=== PATIENT | male | born 1955 | race African-American/Black ===

== ENCOUNTER 2017-01-29 10:48 | Inpatient (IN) ==
[2017-01-29 11:28] LABS: MANUAL DIFF NEEDED? NO
[2017-01-29 11:31] LABS: BASO% 0.2 % (0.0-0.8); EOS# 0.05 X1000 (0.0-0.7); EOS% 0.4 % (0.0-10.0); HEMATOCRIT 39.8 % (42.0-52.0); HEMOGLOBIN 12.4 g/dL (14.0-18.0); IMM GRAN# 0.03 X1000 (0.0-0.04); IMM GRAN% 0.2 % (0.0-0.5); LYMPH# 1.45 X1000 (1.2-3.4); LYMPH% 11.5 % (20.5-51.1); MCH 27.2 PG (27-31); MCHC 31.2 g/dL (33-37); MCV 87.3 FL (81-99); MONO# 0.85 X1000 (0.11-0.59); MONO% 6.8 % (1.7-9.3); NEUT% 80.9 % (42.2-75.2); PLT 256 X1000 (130-400); RBC 4.56 XMIL (4.7-6.1)
[2017-01-29] MEDS ORDERED: NS 1,000 ML IV ONE ×2 (11:32)
--- NOTE | 2017-01-29 11:37 | PROVIDER DOCUMENTATION ---
HPI-General Adult - General Chief Complaint: Weakness Stated Complaint: WEAKNESS Time Seen by Provider: 01/29/17 11:11 Source: patient Allergies/Adverse Reactions: Patient Allergies Allergy/AdvReac Type Severity Reaction Status Date / Time No Known Allergies Allergy Verified 01/13/16 08:44 Home Medications: Home Medication List Medication Instructions Recorded Confirmed Last Taken Type ATORVAstatin [Lipitor] 40 mg PO QHS 01/13/16 01/29/17 04/16/16 20:00 History Aspirin 81 mg PO DAILY 01/13/16 01/29/17 04/09/16 07:30 History Clopidogrel Bisulfate [Plavix] 75 mg PO DAILY 01/13/16 01/29/17 04/06/16 07:30 History LISINOpril [Prinivil] 40 mg PO DAILY 01/13/16 01/29/17 04/15/16 20:00 History Metoprolol Tartrate 50 mg PO BID 01/13/16 01/29/17 04/17/16 04:30 History Amlodipine [Norvasc] 5 mg PO DAILY 01/29/17 01/29/17 Unknown History Colchicine [Colcrys] 1 tab PO DAILY 01/29/17 01/29/17 Unknown History Hydrocodone/APAP 7.5 mg/325 mg 1 each PO BID PRN 01/29/17 01/29/17 Unknown History [[place]-7.5] Ipratropium/Albuterol Sulfate 1 inhaler PO DAILY 01/29/17 01/29/17 Unknown History [Iprat-Albut 0.5-3(2.5) mg/3 ml] Umeclidinium/Vilanterol [Anoro 1 puff INH RTDAILY 01/29/17 01/29/17 Unknown History Ellipta 62.5-25 Mcg INH] - History of Present Illness -Gen Adult Nature of Presenting Problems: 61 y/o BM presents to the ED with unknown complaint. Pt oriented to time, but is not answering most questions appropriately. Pt uttering non-sensical words in the room. Review of Systems - Adult - REVIEW OF SYSTEMS - ADULT ROS:: limited per condition Constitutional: reports: no symptoms reported Eyes: reports: no symptoms reported Ears, Nose, Mouth & Throat: reports: no symptoms reported Cardiovascular: reports: no symptoms reported Respiratory: reports: no symptoms reported Gastrointestinal: reports: no symptoms reported Genitourinary: reports: no symptoms reported Musculoskeletal: reports: no symptoms reported Integumentary: reports: no symptoms reported Neurological: reports: no symptoms reported Psychiatric: reports: no symptoms reported Endocrine: reports: no symptoms reported Hematologic/Lymphatic: reports: no symptoms reported Allergic/Immunologic: reports: no symptoms reported All Other Systems: Reviewed and Negative Past History - Adult - PAST MEDICAL HISTORY-ADULT Review of Records: reports: Nursing Assessment Review, Medications Reviewed - SOCIAL HISTORY Smoking: cigarettes, less than 1 pack/day Physical Exam-General - PHYSICAL EXAM-ADULT Initial Vital Signs Reviewed: Yes - CONSTITUTIONAL General Appearance: slow to respond - EYES Eyes: pink conjunctivae - HEAD, EARS, NOSE, MOUTH & THROAT HENMT: normocephalic/atraumatic - NECK Neck: normal inspection - RESPIRATORY Respiratory: no respiratory distress, decreased breath sounds. negative: crackles, rales, rhonchi, stridor, wheezing - CARDIOVASCULAR Cardiovascular: regular rate, rhythm. negative: bradycardia, tachycardia - GASTROINTESTINAL (ABDOMEN) Abdominal Exam: normal bowel sounds, non tender, soft. negative: distended, guarding, rigid - MUSCULOSKELETAL Back Exam: normal inspection Extremity: normal inspection - SKIN Integumentary: normal color - PSYCHIATRIC Psych/Mental Status: disheveled. negative: oriented x 3 (A&O x2) Progress - PLAN OF CARE/RESULTS Progress/Plan/Lab Results: Vital Signs - 8 hr 01/29/17 11:04 Temperature 97.3 F L Pulse Rate 71 Respiratory Rate 18 Blood Pressure 142/61 O2 Sat by Pulse Oximetry 96 Laboratory Results - last 24 hr 01/29/17 11:15 WBC 12.58 H RBC 4.56 L Hgb 12.4 L Hct 39.8 L MCV 87.3 MCH 27.2 MCHC 31.2 L RDW Std Deviation 19.0 H Plt Count 256 MPV 12.0 H Immature Gran % (Auto) 0.2 Neut % (Auto) 80.9 H Lymph % (Auto) 11.5 L [place] % (Auto) 6.8 Eos % (Auto) 0.4 Baso % (Auto) 0.2 Immature Gran # (Auto) 0.03 Neut # (Auto) 10.18 H Lymph # (Auto) 1.45 [place] # (Auto) 0.85 H Eos # (Auto) 0.05 Baso # (Auto) 0.02 Orders Category Date Time Status Cardiac Monitoring DIRECTED Care 01/29/17 11:10 Active Finger Stick Blood Sugar (ED) DIRECTED Care 01/29/17 11:10 Active Oxygen Therapy- ED Nursing DIRECTED Care 01/29/17 11:10 Active Saline Loc NOW Care 01/29/17 11:10 Active ALCOHOL BLOOD Stat Lab 01/29/17 11:15 Received CBC WITH ELECTRONIC DIFF [HEME] Stat Lab 01/29/17 11:15 Completed CK PROFILE [SP CHEM] Stat Lab 01/29/17 11:15 Received COMPREHENSIVE METABOLIC PANEL [CHEM] Stat Lab 01/29/17 11:15 Received LACTATE, PLASMA [CHEM] Stat Lab 01/29/17 11:[address]IME WITH INR PL [COAG] Stat Lab 01/29/17 11:[address] [COAG] Stat Lab 01/29/17 11:15 Received TROPONIN T Stat Lab 01/29/17 11:[address] W/POSS RFLX CULT [URINALYSIS] Stat Lab 01/29/17 11:14 Ordered URINE DRUG SCREEN PL Stat Lab 01/29/17 11:14 Ordered Pulse Oximetry Stat Oth 01/29/17 11:10 Active EKG [EKG] Stat Ther 01/29/17 11:10 Ordered Laboratory Tests 01/29/17 01/29/17 01/29/17 11:02 11:15 11:15 WBC RBC Hgb Hct MCV MCH MCHC RDW Std Deviation Plt Count MPV Immature Gran % (Auto) Neut % (Auto) Lymph % (Auto) [place] % (Auto) Eos % (Auto) Baso % (Auto) Immature Gran # (Auto) Neut # (Auto) Lymph # (Auto) [place] # (Auto) Eos # (Auto) Baso # (Auto) PT INR APTT (Factor Assay) Specimen Type Sample Site pH pCO2 pO2 HCO3 Base Excess Oxyhemoglobin ABG O2 Sat (Calculated) ABG O2 Saturation ABG Carboxyhemoglobin ABG Methemoglobin Toribio Test A-a O2 Difference Total Hemoglobin Lactate Blood Gas Modality FiO2 % Sodium 139 Potassium 6.2 H* Chloride 111 H Carbon Dioxide 12 L Anion Gap 17 BUN 130 H Creatinine 2.7 H Estimated GFR/1.73 m2 24 BUN/Creatinine Ratio 48 Glucose 124 H POC Glucose 55 L D Calculated Osmolality 321 Calcium 10.0 Magnesium Total Bilirubin 0.20 AST 21 ALT 15 Alkaline Phosphatase 88 Creatine Kinase 126 Troponin T 0.180 H Total Protein 8.8 H Albumin 3.8 Globulin 5.0 Albumin/Globulin Ratio 1.0 Prealbumin Plasma Lactate PSA Diagnostic TSH Urine Source Urine Color Urine Clarity Urine pH Ur Specific [place] Urine Protein Urine Ketones Urine Blood Urine Nitrite Urine Bilirubin Urine Urobilinogen Urine Microscopic RBC Urine WBC Urine Microscopic WBC Ur Epithelial Cells Urine Bacteria Ur Random Creatinine Ur Random Sodium Urine Glucose Urine Opiates Screen Ur Oxycodone Screen Urine Methadone Screen Ur Barbituates Screen Ur Tricyclics Screen Ur Phencyclidine Scrn Ur Amphetamines Screen U Methamphetamines Scrn Urine MDMA Screen U Benzodiazepines Scrn Urine Cocaine Screen U Cannabinoids Screen Plasma/Serum Ethyl Alc 01/29/17 01/29/17 01/29/17 11:15 11:15 11:15 WBC 12.58 H RBC 4.56 L Hgb 12.4 L Hct 39.8 L MCV 87.3 MCH 27.2 MCHC 31.2 L RDW Std Deviation 19.0 H Plt Count 256 MPV 12.0 H Immature Gran % (Auto) 0.2 Neut % (Auto) 80.9 H Lymph % (Auto) 11.5 L [place] % (Auto) 6.8 Eos % (Auto) 0.4 Baso % (Auto) 0.2 Immature Gran # (Auto) 0.03 Neut # (Auto) 10.18 H Lymph # (Auto) 1.45 [place] # (Auto) 0.85 H Eos # (Auto) 0.05 Baso # (Auto) 0.02 PT 14.2 INR 1.07 APTT (Factor Assay) 25.5 Specimen Type Sample Site pH pCO2 pO2 HCO3 Base Excess Oxyhemoglobin ABG O2 Sat (Calculated) ABG O2 Saturation ABG Carboxyhemoglobin ABG Methemoglobin Toribio Test A-a O2 Difference Total Hemoglobin Lactate Blood Gas Modality FiO2 % Sodium Potassium Chloride Carbon Dioxide Anion Gap BUN Creatinine Estimated GFR/1.73 m2 BUN/Creatinine Ratio Glucose POC Glucose Calculated Osmolality Calcium Magnesium Total Bilirubin AST ALT Alkaline Phosphatase Creatine Kinase Troponin T Total Protein Albumin Globulin Albumin/Globulin Ratio Prealbumin Plasma Lactate PSA Diagnostic TSH Urine Source Urine Color Urine Clarity Urine pH Ur Specific [place] Urine Protein Urine Ketones Urine Blood Urine Nitrite Urine Bilirubin Urine Urobilinogen Urine Microscopic RBC Urine WBC Urine Microscopic WBC Ur Epithelial Cells Urine Bacteria Ur Random Creatinine Ur Random Sodium Urine Glucose Urine Opiates Screen Ur Oxycodone Screen Urine Methadone Screen Ur Barbituates Screen Ur Tricyclics Screen Ur Phencyclidine Scrn Ur Amphetamines Screen U Methamphetamines Scrn Urine MDMA Screen U Benzodiazepines Scrn Urine Cocaine Screen U Cannabinoids Screen Plasma/Serum Ethyl Alc 0 01/29/17 01/29/17 01/29/17 11:35 13:24 13:30 WBC RBC Hgb Hct MCV MCH MCHC RDW Std Deviation Plt Count MPV Immature Gran % (Auto) Neut % (Auto) Lymph % (Auto) [place] % (Auto) Eos % (Auto) Baso % (Auto) Immature Gran # (Auto) Neut # (Auto) Lymph # (Auto) [place] # (Auto) Eos # (Auto) Baso # (Auto) PT INR APTT (Factor Assay) Specimen Type Sample Site pH pCO2 pO2 HCO3 Base Excess Oxyhemoglobin ABG O2 Sat (Calculated) ABG O2 Saturation ABG Carboxyhemoglobin ABG Methemoglobin Toribio Test A-a O2 Difference Total Hemoglobin Lactate Blood Gas Modality FiO2 % Sodium Potassium Chloride Carbon Dioxide Anion Gap BUN Creatinine Estimated GFR/1.73 m2 BUN/Creatinine Ratio Glucose POC Glucose Calculated Osmolality Calcium Magnesium Total Bilirubin AST ALT Alkaline Phosphatase Creatine Kinase Troponin T Total Protein Albumin Globulin Albumin/Globulin Ratio Prealbumin Plasma Lactate 1.2 PSA Diagnostic 0.01 TSH Urine Source VOIDED Urine Color YELLOW Urine Clarity CLEAR Urine pH 6.0 Ur Specific [place] 1.015 Urine Protein 1+(30 mg/dL) A Urine Ketones NEGATIVE Urine Blood 2+ A Urine Nitrite POSITIVE A Urine Bilirubin NEGATIVE Urine Urobilinogen NORMAL Urine Microscopic RBC Not Reportable Urine WBC 2+ A Urine Microscopic WBC 20-40 A Ur Epithelial Cells <10 Urine Bacteria 4+ Ur Random Creatinine Ur Random Sodium Urine Glucose NEGATIVE Urine Opiates Screen Ur Oxycodone Screen Urine Methadone Screen Ur Barbituates Screen Ur Tricyclics Screen Ur Phencyclidine Scrn Ur Amphetamines Screen U Methamphetamines Scrn Urine MDMA Screen U Benzodiazepines Scrn Urine Cocaine Screen U Cannabinoids Screen Plasma/Serum Ethyl Alc 01/29/17 01/29/17 01/29/17 13:30 14:29 15:40 WBC RBC Hgb Hct MCV MCH MCHC RDW Std Deviation Plt Count MPV Immature Gran % (Auto) Neut % (Auto) Lymph % (Auto) [place] % (Auto) Eos % (Auto) Baso % (Auto) Immature Gran # (Auto) Neut # (Auto) Lymph # (Auto) [place] # (Auto) Eos # (Auto) Baso # (Auto) PT INR APTT (Factor Assay) Specimen Type Sample Site pH pCO2 pO2 HCO3 Base Excess Oxyhemoglobin ABG O2 Sat (Calculated) ABG O2 Saturation ABG Carboxyhemoglobin ABG Methemoglobin Toribio Test A-a O2 Difference Total Hemoglobin Lactate Blood Gas Modality FiO2 % Sodium 139 Potassium 6.1 H* Chloride 112 H Carbon Dioxide 13 L Anion Gap 14 BUN 128 H Creatinine 2.2 H Estimated GFR/1.73 m2 30 BUN/Creatinine Ratio 58 Glucose 112 H POC Glucose 87 D Calculated Osmolality 319 Calcium 9.9 Magnesium Total Bilirubin 0.20 AST 20 ALT 16 Alkaline Phosphatase 85 Creatine Kinase Troponin T Total Protein 8.6 H Albumin 3.9 Globulin 5.0 Albumin/Globulin Ratio 1.0 Prealbumin Plasma Lactate PSA Diagnostic TSH Urine Source Urine Color Urine Clarity Urine pH Ur Specific [place] Urine Protein Urine Ketones Urine Blood Urine Nitrite Urine Bilirubin Urine Urobilinogen Urine Microscopic RBC Urine WBC Urine Microscopic WBC Ur Epithelial Cells Urine Bacteria Ur Random Creatinine Ur Random Sodium Urine Glucose Urine Opiates Screen NONE DETECTED Ur Oxycodone Screen NONE DETECTED Urine Methadone Screen NONE DETECTED Ur Barbituates Screen NONE DETECTED Ur Tricyclics Screen NONE DETECTED Ur Phencyclidine Scrn NONE DETECTED Ur Amphetamines Screen NONE DETECTED U Methamphetamines Scrn NONE DETECTED Urine MDMA Screen NONE DETECTED U Benzodiazepines Scrn NONE DETECTED Urine Cocaine Screen NONE DETECTED U Cannabinoids Screen NONE DETECTED Plasma/Serum Ethyl Alc 01/29/17 01/29/17 01/29/17 15:40 15:40 16:28 WBC 10.51 RBC 4.44 L Hgb 12.2 L Hct 38.7 L MCV 87.2 MCH 27.5 MCHC 31.5 L RDW Std Deviation 18.7 H Plt Count 205 MPV 10.6 H Immature Gran % (Auto) Neut % (Auto) Lymph % (Auto) [place] % (Auto) Eos % (Auto) Baso % (Auto) Immature Gran # (Auto) Neut # (Auto) Lymph # (Auto) [place] # (Auto) Eos # (Auto) Baso # (Auto) PT INR APTT (Factor Assay) Specimen Type Sample Site pH pCO2 pO2 HCO3 Base Excess Oxyhemoglobin ABG O2 Sat (Calculated) ABG O2 Saturation ABG Carboxyhemoglobin ABG Methemoglobin Toribio Test A-a O2 Difference Total Hemoglobin Lactate Blood Gas Modality FiO2 % Sodium Potassium Chloride Carbon Dioxide Anion Gap BUN Creatinine Estimated GFR/1.73 m2 BUN/Creatinine Ratio Glucose POC Glucose 55 L Calculated Osmolality Calcium Magnesium Total Bilirubin AST ALT Alkaline Phosphatase Creatine Kinase Troponin T 0.170 H Total Protein Albumin Globulin Albumin/Globulin Ratio Prealbumin Plasma Lactate PSA Diagnostic TSH Urine Source Urine Color Urine Clarity Urine pH Ur Specific [place] Urine Protein Urine Ketones Urine Blood Urine Nitrite Urine Bilirubin Urine Urobilinogen Urine Microscopic RBC Urine WBC Urine Microscopic WBC Ur Epithelial Cells Urine Bacteria Ur Random Creatinine Ur Random Sodium Urine Glucose Urine Opiates Screen Ur Oxycodone Screen Urine Methadone Screen Ur Barbituates Screen Ur Tricyclics Screen Ur Phencyclidine Scrn Ur Amphetamines Screen U Methamphetamines Scrn Urine MDMA Screen U Benzodiazepines Scrn Urine Cocaine Screen U Cannabinoids Screen Plasma/Serum Ethyl Alc 01/29/17 01/29/17 01/29/17 18:00 21:55 23:50 WBC RBC Hgb Hct MCV MCH MCHC RDW Std Deviation Plt Count MPV Immature Gran % (Auto) Neut % (Auto) Lymph % (Auto) [place] % (Auto) Eos % (Auto) Baso % (Auto) Immature Gran # (Auto) Neut # (Auto) Lymph # (Auto) [place] # (Auto) Eos # (Auto) Baso # (Auto) PT INR APTT (Factor Assay) Specimen Type ARTERIAL Sample Site L RADIAL pH 7.23 L pCO2 31 L pO2 194 H HCO3 14.5 L Base Excess -13.3 L Oxyhemoglobin 95.8 ABG O2 Sat (Calculated) 17.0 ABG O2 Saturation 99.3 ABG Carboxyhemoglobin 1.50 ABG Methemoglobin 2.0 H Toribio Test YES A-a O2 Difference 52.0 Total Hemoglobin 12.3 Lactate 0.40 L Blood Gas Modality [place] FiO2 % 40.0 Sodium 145 Potassium 5.6 H Chloride 115 H Carbon Dioxide 14 L Anion Gap 16 BUN 122 H Creatinine 1.7 H Estimated GFR/1.73 m2 41 BUN/Creatinine Ratio 69 Glucose 124 H POC Glucose 136 H D Calculated Osmolality 327 Calcium 9.9 Magnesium Total Bilirubin AST ALT Alkaline Phosphatase Creatine Kinase Troponin T Total Protein Albumin Globulin Albumin/Globulin Ratio Prealbumin Plasma Lactate PSA Diagnostic TSH Urine Source Urine Color Urine Clarity Urine pH Ur Specific [place] Urine Protein Urine Ketones Urine Blood Urine Nitrite Urine Bilirubin Urine Urobilinogen Urine Microscopic RBC Urine WBC Urine Microscopic WBC Ur Epithelial Cells Urine Bacteria Ur Random Creatinine Ur Random Sodium Urine Glucose Urine Opiates Screen Ur Oxycodone Screen Urine Methadone Screen Ur Barbituates Screen Ur Tricyclics Screen Ur Phencyclidine Scrn Ur Amphetamines Screen U Methamphetamines Scrn Urine MDMA Screen U Benzodiazepines Scrn Urine Cocaine Screen U Cannabinoids Screen Plasma/Serum Ethyl Alc 01/30/17 01/30/17 01/30/17 00:12 01:00 01:00 WBC RBC Hgb Hct MCV MCH MCHC RDW Std Deviation Plt Count MPV Immature Gran % (Auto) Neut % (Auto) Lymph % (Auto) [place] % (Auto) Eos % (Auto) Baso % (Auto) Immature Gran # (Auto) Neut # (Auto) Lymph # (Auto) [place] # (Auto) Eos # (Auto) Baso # (Auto) PT INR APTT (Factor Assay) Specimen Type Sample Site pH pCO2 pO2 HCO3 Base Excess Oxyhemoglobin ABG O2 Sat (Calculated) ABG O2 Saturation ABG Carboxyhemoglobin ABG Methemoglobin Toribio Test A-a O2 Difference Total Hemoglobin Lactate Blood Gas Modality FiO2 % Sodium Potassium Chloride Carbon Dioxide Anion Gap BUN Creatinine Estimated GFR/1.73 m2 BUN/Creatinine Ratio Glucose POC Glucose 75 Calculated Osmolality Calcium Magnesium Total Bilirubin AST ALT Alkaline Phosphatase Creatine Kinase Troponin T Total Protein Albumin Globulin Albumin/Globulin Ratio Prealbumin Plasma Lactate PSA Diagnostic TSH Urine Source CATH Urine Color YELLOW Urine Clarity CLEAR Urine pH 5.0 Ur Specific [place] 1.015 Urine Protein TRACE A Urine Ketones NEGATIVE Urine Blood 2+ A Urine Nitrite NEGATIVE Urine Bilirubin NEGATIVE Urine Urobilinogen NORMAL Urine Microscopic RBC 10-20 A Urine WBC 2+ A Urine Microscopic WBC 10-20 A Ur Epithelial Cells <10 Urine Bacteria 2+ Ur Random Creatinine 48.6 H Ur Random Sodium 41 Urine Glucose NEGATIVE Urine Opiates Screen Ur Oxycodone Screen Urine Methadone Screen Ur Barbituates Screen Ur Tricyclics Screen Ur Phencyclidine Scrn Ur Amphetamines Screen U Methamphetamines Scrn Urine MDMA Screen U Benzodiazepines Scrn Urine Cocaine Screen U Cannabinoids Screen Plasma/Serum Ethyl Alc 01/30/17 01/30/17 01/30/17 04:30 04:30 04:30 WBC 10.64 RBC 4.21 L Hgb 11.5 L Hct 36.8 L MCV 87.4 MCH 27.3 MCHC 31.3 L RDW Std Deviation 18.7 H Plt Count 205 MPV 11.3 H Immature Gran % (Auto) Neut % (Auto) Lymph % (Auto) [place] % (Auto) Eos % (Auto) Baso % (Auto) Immature Gran # (Auto) Neut # (Auto) Lymph # (Auto) [place] # (Auto) Eos # (Auto) Baso # (Auto) PT INR APTT (Factor Assay) Specimen Type Sample Site pH pCO2 pO2 HCO3 Base Excess Oxyhemoglobin ABG O2 Sat (Calculated) ABG O2 Saturation ABG Carboxyhemoglobin ABG Methemoglobin Toribio Test A-a O2 Difference Total Hemoglobin Lactate Blood Gas Modality FiO2 % Sodium 148 H Potassium 5.8 H Chloride 119 H Carbon Dioxide 14 L Anion Gap 15 BUN 105 H Creatinine 1.7 H Estimated GFR/1.73 m2 41 BUN/Creatinine Ratio 62 Glucose 145 H POC Glucose Calculated Osmolality 330 Calcium 9.9 Magnesium 2.8 H Total Bilirubin 0.20 AST 19 ALT 16 Alkaline Phosphatase 80 Creatine Kinase Troponin T Total Protein 8.2 Albumin 3.8 Globulin 4.0 Albumin/Globulin Ratio 1.0 Prealbumin Plasma Lactate PSA Diagnostic TSH 1.04 Urine Source Urine Color Urine Clarity Urine pH Ur Specific [place] Urine Protein Urine Ketones Urine Blood Urine Nitrite Urine Bilirubin Urine Urobilinogen Urine Microscopic RBC Urine WBC Urine Microscopic WBC Ur Epithelial Cells Urine Bacteria Ur Random Creatinine Ur Random Sodium Urine Glucose Urine Opiates Screen Ur Oxycodone Screen Urine Methadone Screen Ur Barbituates Screen Ur Tricyclics Screen Ur Phencyclidine Scrn Ur Amphetamines Screen U Methamphetamines Scrn Urine MDMA Screen U Benzodiazepines Scrn Urine Cocaine Screen U Cannabinoids Screen Plasma/Serum Ethyl Alc 01/30/17 01/30/17 01/30/17 04:30 04:30 04:30 WBC RBC Hgb Hct MCV MCH MCHC RDW Std Deviation Plt Count MPV Immature Gran % (Auto) Neut % (Auto) Lymph % (Auto) [place] % (Auto) Eos % (Auto) Baso % (Auto) Immature Gran # (Auto) Neut # (Auto) Lymph # (Auto) [place] # (Auto) Eos # (Auto) Baso # (Auto) PT INR APTT (Factor Assay) Specimen Type Sample Site pH pCO2 pO2 HCO3 Base Excess Oxyhemoglobin ABG O2 Sat (Calculated) ABG O2 Saturation ABG Carboxyhemoglobin ABG Methemoglobin Toribio Test A-a O2 Difference Total Hemoglobin Lactate Blood Gas Modality FiO2 % Sodium Potassium Chloride Carbon Dioxide Anion Gap BUN Creatinine Estimated GFR/1.73 m2 BUN/Creatinine Ratio Glucose POC Glucose Calculated Osmolality Calcium Magnesium Total Bilirubin AST ALT Alkaline Phosphatase Creatine Kinase 124 Troponin T 0.089 Total Protein Albumin Globulin Albumin/Globulin Ratio Prealbumin Plasma Lactate 1.2 PSA Diagnostic TSH Urine Source Urine Color Urine Clarity Urine pH Ur Specific [place] Urine Protein Urine Ketones Urine Blood Urine Nitrite Urine Bilirubin Urine Urobilinogen Urine Microscopic RBC Urine WBC Urine Microscopic WBC Ur Epithelial Cells Urine Bacteria Ur Random Creatinine Ur Random Sodium Urine Glucose Urine Opiates Screen Ur Oxycodone Screen Urine Methadone Screen Ur Barbituates Screen Ur Tricyclics Screen Ur Phencyclidine Scrn Ur Amphetamines Screen U Methamphetamines Scrn Urine MDMA Screen U Benzodiazepines Scrn Urine Cocaine Screen U Cannabinoids Screen Plasma/Serum Ethyl Alc 01/30/17 01/30/17 12:50 12:50 WBC RBC Hgb Hct MCV MCH MCHC RDW Std Deviation Plt Count MPV Immature Gran % (Auto) Neut % (Auto) Lymph % (Auto) [place] % (Auto) Eos % (Auto) Baso % (Auto) Immature Gran # (Auto) Neut # (Auto) Lymph # (Auto) [place] # (Auto) Eos # (Auto) Baso # (Auto) PT INR APTT (Factor Assay) Specimen Type Sample Site pH pCO2 pO2 HCO3 Base Excess Oxyhemoglobin ABG O2 Sat (Calculated) ABG O2 Saturation ABG Carboxyhemoglobin ABG Methemoglobin Toribio Test A-a O2 Difference Total Hemoglobin Lactate Blood Gas Modality FiO2 % Sodium 147 H Potassium 5.9 H Chloride 119 H Carbon Dioxide 14 L Anion Gap 14 BUN 88 H Creatinine 1.5 H Estimated GFR/1.73 m2 47 BUN/Creatinine Ratio 59 Glucose 161 H POC Glucose Calculated Osmolality 323 Calcium 9.4 Magnesium Total Bilirubin AST ALT Alkaline Phosphatase Creatine Kinase Troponin T Total Protein Albumin Globulin Albumin/Globulin Ratio Prealbumin 19.1 L Plasma Lactate PSA Diagnostic TSH Urine Source Urine Color Urine Clarity Urine pH Ur Specific [place] Urine Protein Urine Ketones Urine Blood Urine Nitrite Urine Bilirubin Urine Urobilinogen Urine Microscopic RBC Urine WBC Urine Microscopic WBC Ur Epithelial Cells Urine Bacteria Ur Random Creatinine Ur Random Sodium Urine Glucose Urine Opiates Screen Ur Oxycodone Screen Urine Methadone Screen Ur Barbituates Screen Ur Tricyclics Screen Ur Phencyclidine Scrn Ur Amphetamines Screen U Methamphetamines Scrn Urine MDMA Screen U Benzodiazepines Scrn Urine Cocaine Screen U Cannabinoids Screen Plasma/Serum Ethyl Alc Result Diagrams: 01/30/17 04:30 01/30/17 12:50 Departure - Departure Time of Disposition Decision: 13:30 DIAGNOSIS: Hyperkalemia, Prerenal renal failure Disposition: ADMITTED INPATIENT 09 Certified Medical Emergency: Emergent Condition: Stable Attestation - Physician/ YE Attestation Patient care was provided by Advanced Practice Provider:: Yes Advanced Practice Provider:: Alejandra Meier Advanced Practice Provider documentation review:: The Mid-level provider documentation, treatment plan and medical decision making was reviewed by the physician who agrees with all treatment and medical decision making by the MLP.
[2017-01-29 11:47] LABS: INR 1.07 (0.86-1.15); PROTIME 14.2 Seconds (12.1-15.5); PTT PL 25.5 Seconds (22.6-43.9)
--- NOTE | 2017-01-29 11:52 | ED EKG INTERP ---
This chart was entered by Irma Barbosa Scribe, acting as scribe for Aaron Scott MD. EKG Interpretation - EKG Time of EKG reading by physician:: 11:19 EKG Read and Signed by:: Aaron Scott EKG Interpretation (*Must complete 3 of following elements*): Abnormal ( inferior infarct, age undetermined) Rate: 59 Rhythm: sinus bradycardia with short MT Comments: left ventricular hypertrophy with QRS widening This chart was documented by the indicated scribe, (Irma Barbosa Scribe) and accurately reflects the services I performed and decisions made by me, Aaron Scott MD, as attested by the provider's signature.
--- NOTE | 2017-01-29 12:28 | Diag Imaging Result Document ---
PROCEDURE NAME: HEAD W/O CONTRAST - 01/29/2017 CT BRAIN WITHOUT CONTRAST: FINDINGS: No parenchymal hemorrhage. No epidural or subdural hematoma. No subarachnoid hemorrhage. Mild atrophy. No mass identified on this noncontrasted exam. No hydrocephalus. No sinus opacification although there is mucosal thickening in each maxillary sinus. IMPRESSION: 1. No hemorrhage. Mild atrophy. 2. Mild maxillary sinusitis. A preliminary report was given at 12:03 p.m.
[2017-01-29 12:59] LABS: ALBUMIN 3.8 g/dL (3.5-5.0); POTASSIUM 6.2 mmol/L (3.5-5.1); TOTAL BILIRUBIN 0.2 mg/dL (0.20-1.00); TOTAL PROTEIN 8.8 g/dL (6.3-8.3)
--- NOTE | 2017-01-29 13:36 | Diag Imaging Result Document ---
PROCEDURE NAME: CHEST-2 VIEWS - 01/29/2017 FRONTAL AND LATERAL CHEST, TWO VIEWS: FINDINGS: Sternal wires and surgical clips are present. The lungs are well expanded. The heart is not enlarged. The vessels are not distended. No pneumonia. No pleural effusions. Mild increased AP diameter to the chest. IMPRESSION: I believe the patient has emphysema.
[2017-01-29] MEDS ORDERED: ZOFRAN IV PRN (13:57)
[2017-01-29 13:59] LABS: UR AMPHETAMINES QUAL NONE DETECTED (NONE DETECT); UR BARBITUATES QUAL NONE DETECTED (NONE DETECT); UR BENZODIAZEPIN QUAL NONE DETECTED (NONE DETECT); UR CANNABINOIDS QUAL NONE DETECTED (NONE DETECT); UR COCAINE QUAL NONE DETECTED (NONE DETECT); UR MDMA QUAL NONE DETECTED (NONE DETECT); UR METHADONE QUAL NONE DETECTED (NONE DETECT); UR METHAMPHETAMINE QUAL NONE DETECTED (NONE DETECT); UR OPIATES QUAL NONE DETECTED (NONE DETECT); UR OXYCODONE QUAL NONE DETECTED (NONE DETECT); UR PCP QUAL NONE DETECTED (NONE DETECT); UR TCA QUAL NONE DETECTED (NONE DETECT)
[2017-01-29 14:10] LABS: BILIRUBIN URINE NEGATIVE (NEGATIVE); BLOOD URINE 2+ (NEGATIVE); CLARITY CLEAR (CLEAR); COLOR YELLOW; GLUCOSE URINE NEGATIVE (NEGATIVE); LEUKOCYTES URINE 2+ (NEGATIVE); NITRITE URINE POSITIVE (NEGATIVE); PROTEIN URINE 1+(30 mg/dL) mg/dL (NEGATIVE); SP GRAVITY URINE 1.015; UROBILINOGEN URINE NORMAL
[2017-01-29 14:11] LABS: URINE WBC 20-40 /HPF (<10)
[2017-01-29 14:12] LABS: URINE CULTURE PL NEEDED? YES; URINE EPITHELIAL CELLS <10 /HPF (<10); URINE SOURCE VOIDED
--- NOTE | 2017-01-29 15:00 | Diag Imaging Result Document ---
PROCEDURE NAME: US RENAL 2 (RETROPER) COMPLETE - 01/29/2017 RENAL ULTRASOUND: INDICATION: Kidney failure. FINDINGS: The kidneys appear normal in size and echotexture. There is no hydronephrosis. There is a 5.9 cm simple renal cyst, right upper pole. There is an additional 7 mm cyst within the right midpole. There is no hydronephrosis or nephrolithiasis. Left kidney is unremarkable. The bladder is not distended. IMPRESSION: Right renal cyst. No hydronephrosis.
[2017-01-29 15:50] LABS: HEMATOCRIT 38.7 % (42.0-52.0); HEMOGLOBIN 12.2 g/dL (14.0-18.0); MCH 27.5 PG (27-31); MCHC 31.5 g/dL (33-37); MCV 87.2 FL (81-99); MPV 10.6 FL (7.4-10.4); RBC 4.44 XMIL (4.7-6.1)
[2017-01-29 16:20] LABS: ALBUMIN 3.9 g/dL (3.5-5.0); CALCIUM 9.9 mg/dL (8.8-10.2); TOTAL BILIRUBIN 0.2 mg/dL (0.20-1.00); TOTAL PROTEIN 8.6 g/dL (6.3-8.3)
[2017-01-29 16:22] LABS: POTASSIUM 6.1 mmol/L (3.5-5.1)
--- NOTE | 2017-01-29 17:54 | EKG Report ---
Test Performed on : 01/29/2017 11:19:28 AM Test Reason : AMS Blood Pressure : / mmHG Vent. Rate : 059 BPM Atrial Rate : 059 BPM P-R Int : 096 ms QRS Dur : 142 ms QT Int : 406 ms P-R-T Axes : 091 070 061 degrees QTc Int : 401 ms Sinus bradycardia. with short [place] Left ventricular hypertrophy with QRS widening Inferior infarct , age undetermined Abnormal ECG When compared with ECG of 18-DEC-2007 12:29, QRS duration has increased Inferior infarct is now present ST elevation now present in Anterior leads Nonspecific T wave abnormality no longer evident in Inferior leads Nonspecific T wave abnormality no longer evident in Anterolateral leads Unconfirmed Result
[2017-01-29] MEDS ORDERED: LACTULOSE PO ONE (19:32)
[2017-01-29] MEDS: LACTULOSE PO SCH (21:51)
[2017-01-29] MEDS: ATIVAN IV PRN (21:51)
--- NOTE | 2017-01-29 22:19 | HISTORY AND PHYSICAL ---
CHIEF COMPLAINT: Generalized weakness. HISTORY OF PRESENT ILLNESS: The patient is a 61-year-old male, who presents to the emergency department. However, unfortunately there are no family or friends present. His memory is somewhat suspect. He is oriented to time only and is confused as to where he is at or why. Does note that he is generally weak. Denies any chest pain. Denies any fever. Appears to deny any cough or GI symptoms. ALLERGIES: No known drug allergies. MEDICATIONS: Lipitor 40, aspirin 81, Plavix 75, metoprolol 12.5, Glucophage 500. Atwood 10 q.4 p.r.n. Unknown when the last dose was. In fact, it appears he has been rather noncompliant with all of his medications listed. REVIEW OF SYSTEMS: Essentially unobtainable as the patient is confused, disoriented. He will verbally respond to each question, although does not answer most questions when asked. PAST MEDICAL HISTORY: As noted. It appears that he has high cholesterol, hypertension, diabetes, although he certainly does not appear to be taking any medications on any regular basis. FAMILY HISTORY: Noncontributory. SOCIAL HISTORY: Patient lives at home. He is reported to smoke a pack a day. PHYSICAL: Vital Signs: Temperature 97.3, pulse 71, respiratory 18, BP 142/61. General: Patient is awake, alert. He currently is in mild respiratory distress. HEENT: Normocephalic, atraumatic. Neck: Supple. CV: Regular rate. Chest: Decreased breath sounds bilaterally, but appears equal. No apparent wheezing. No crackles. Abdomen: Soft, scaphoid in appearance. Neurologic: No focal changes. Patient is a very frail appearing, male. Skin: No apparent rashes. LABS: WBC is 12, hemoglobin and hematocrit 12 and 39. Sodium 139, potassium 6.3, bicarb 12. BUN 130. Potassium 2.7. ASSESSMENT: 1. Acute renal failure. Last creatinine on final was 0.9, likely this is prerenal due to volume depletion. 2. Hyperkalemia. 3. Metabolic acidosis, likely secondary to his acute renal failure. 4. Leukocytosis. 5. Generalized weakness. 6. History of diabetes. 7. History of hypertension. PLAN: It appears that the ER did not treat his renal failure nor his hyperkalemia. We will treat both with IV fluids. Recheck if his potassium is still up. Will add lactulose and breathing treatments. We will continue to follow. Certainly may need bicarb added to his IV fluids. Further orders as needed. cc: Jake Gruber MD
[2017-01-29 22:41] LABS: CALCIUM 9.9 mg/dL (8.8-10.2); POTASSIUM 5.6 mmol/L (3.5-5.1)
[2017-01-30 01:08] LABS: BE -13.3 mmoll (-3.0-3.0); BLOOD TYPE ARTERIAL; DRAW SITE L RADIAL; PCO2(98.6) 31 mmHg (35-45); PO2(98.6) 194 mmHg (60-100); SAMPLE BLOOD; SAO2 99.3 % (95.0-100.0); THB 12.3 g/dL (11.5-17.4); pH(98.6) 7.23 (7.35-7.45)
[2017-01-30 01:10] LABS: ALLEN TEST YES; MODALITY VENTIMASK
[2017-01-30] MEDS: D5 1/2 NS 1,000 ML IV SCH ×3 (01:24→20:37)
[2017-01-30] MEDS: ZOSYN 3.375 GM/NS 3.375 GM/50 ML IVPB IV SCH ×4 (01:25→18:30)
[2017-01-30] MEDS: DUONEB (A & A) INH SCH ×7 (01:28→22:40)
[2017-01-30 02:02] LABS: BILIRUBIN URINE NEGATIVE (NEGATIVE); BLOOD URINE 2+ (NEGATIVE); CLARITY CLEAR (CLEAR); COLOR YELLOW; GLUCOSE URINE NEGATIVE (NEGATIVE); LEUKOCYTES URINE 2+ (NEGATIVE); NITRITE URINE NEGATIVE (NEGATIVE); PROTEIN URINE TRACE mg/dL (NEGATIVE); SP GRAVITY URINE 1.015; UROBILINOGEN URINE NORMAL
[2017-01-30 02:03] LABS: URINE CULTURE PL NEEDED? YES; URINE EPITHELIAL CELLS <10 /HPF (<10)
[2017-01-30 02:05] LABS: URINE SOURCE CATH
[2017-01-30 04:52] LABS: HEMATOCRIT 36.8 % (42.0-52.0); HEMOGLOBIN 11.5 g/dL (14.0-18.0); MCH 27.3 PG (27-31); MCHC 31.3 g/dL (33-37); MCV 87.4 FL (81-99); MPV 11.3 FL (7.4-10.4); RBC 4.21 XMIL (4.7-6.1)
[2017-01-30 05:14] LABS: ALBUMIN 3.8 g/dL (3.5-5.0); CALCIUM 9.9 mg/dL (8.8-10.2); MAGNESIUM 2.8 mg/dL (1.5-2.7); POTASSIUM 5.8 mmol/L (3.5-5.1); TOTAL BILIRUBIN 0.2 mg/dL (0.20-1.00); TOTAL PROTEIN 8.2 g/dL (6.3-8.3)
[2017-01-30] MEDS: LACTULOSE PO SCH ×2 (11:00→20:37)
[2017-01-30 11:40] LABS: UR CREAT RANDOM 48.6 mg/dL (14-26)
--- NOTE | 2017-01-30 12:40 | PROGRESS NOTE ---
DATE: 01/30/2017 SUBJECTIVE: The patient appears to be much improved this morning. He is awake and alert. His sister notes that this is his baseline mental status. OBJECTIVE: Vital Signs: Temperature 97 degrees, pulse 66, respiratory rate 24, blood pressure 149/86, saturation 100% on 2 liters. General: The patient is awake, alert. He is much better than he was last night. He is in much less distress. Neck: Supple. Cardiovascular: Regular rate. Chest: Relatively clear. Abdomen: Soft. Extremities: He moves all extremities. Neurologic: No changes. The patient is awake, alert. Speech is more clear this morning. LABORATORY DATA: CBC essentially normal. CMP with an improved potassium at 5.8. Creatinine 1.7. Magnesium 2.8. Troponin 0.89. ASSESSMENT AND PLAN: 1. Elevated troponin has resolved, likely secondary to his acute renal failure. 2. Acute renal failure. Serum creatinine continues to improve from 2.7 down to 1.7. 3. Acute volume depletion. The patient's BUN has also continued to improve. It was 130, down to 105. 4. Hyperkalemia, still elevated, but improving. 5. Hypernatremia. We will follow. 6. Sepsis secondary to urinary tract infection, improving. 7. Urinary tract infection with gram-negative rods. Continue Zosyn. 8. Further orders as needed. cc: Jake Gruber MD
--- NOTE | 2017-01-30 12:50 | PROGRESS NOTE ---
DATE: 01/30/2017 SUBJECTIVE: Mr. Guevara was according to the staff up in the room walking, earlier this evening. He then had an episode where he became confused and disoriented and they could not get his blood pressure to read. A call was performed at that point. OBJECTIVE: Vital Signs: Temperature 97 degrees, pulse 66, O2 saturation 98% on Ventimask. General: Patient is arousable but confused. He appears more disoriented than previously. HEENT: Normocephalic. Neck: Supple. CV: Appears regular rate. Chest: Greatly decreased breath sounds compared to earlier exam. Abdomen: Soft. Extremities: He moves all extremities when retracting from noxious stimuli. ASSESSMENT: 1. Acute respiratory failure. Patient currently is on a non-rebreather and appears to be improving. 2. Acute metabolic encephalopathy. 3. Acute metabolic acidosis. ABG demonstrates a pH at 723 with a PO2 of 194 and a base excess of - 13 on 40% Ventimask with a lactate elevated at 2.4. 4. Sepsis with urinary tract infection and respiratory failure. PLAN: We will move the patient to ICU. We will continue to follow. We will readjust his medications. Further orders as needed. cc: Jake Gruber MD
[2017-01-30 13:35] LABS: CALCIUM 9.4 mg/dL (8.8-10.2); POTASSIUM 5.9 mmol/L (3.5-5.1)
[2017-01-30] MEDS: NICODERM PATCH TD PRN (21:40)
[2017-01-30] MEDS: ATIVAN IV PRN (22:22)
[2017-01-31] MEDS: ZOSYN 3.375 GM/NS 3.375 GM/50 ML IVPB IV SCH ×4 (01:14→17:59)
[2017-01-31] MEDS: DUONEB (A & A) INH SCH ×6 (02:51→23:01)
[2017-01-31] MEDS: D5 1/2 NS 1,000 ML IV SCH ×2 (05:35→16:29)
[2017-01-31 08:38] LABS: MANUAL DIFF NEEDED? NO
[2017-01-31 09:13] LABS: AGAP 18; ALBUMIN 3.1 g/dL (3.5-5.0); ALKALINE PHOSPHATASE 69 U/L (32-122); BUN 52 mg/dL (8-22); CALCIUM 9.5 mg/dL (8.8-10.2); CHLORIDE 120 mmol/L (98-107); COSMO 311; GOT 19 U/L (10-34); GPT 15 U/L (10-44); POTASSIUM 5.6 mmol/L (3.5-5.1); SODIUM 149 mmol/L (136-145); TCO2 11 mmol/L (25-35)
[2017-01-31 09:14] LABS: BASO% 0.9 % (0.0-0.8); EOS# 0.14 X1000 (0.0-0.7); EOS% 1.5 % (0.0-10.0); HEMATOCRIT 37.6 % (42.0-52.0); HEMOGLOBIN 11.5 g/dL (14.0-18.0); IMM GRAN# 0.01 X1000 (0.0-0.04); IMM GRAN% 0.1 % (0.0-0.5); LYMPH# 1.06 X1000 (1.2-3.4); LYMPH% 11.6 % (20.5-51.1); MCH 27.8 PG (27-31); MCHC 30.6 g/dL (33-37); MCV 90.8 FL (81-99); MONO# 0.92 X1000 (0.11-0.59); MONO% 10.1 % (1.7-9.3); MPV 10.9 FL (7.4-10.4); NEUT% 75.8 % (42.2-75.2); PLT 156 X1000 (130-400); RBC 4.14 XMIL (4.7-6.1)
[2017-01-31] MEDS: LACTULOSE PO SCH ×2 (11:06→20:31)
--- NOTE | 2017-01-31 13:23 | PROGRESS NOTE ---
DATE: 01/31/2017 SUBJECTIVE: Patient without any new complaints this morning. He is awake, alert, but sometimes decides not to answer questions. OBJECTIVE: Vital signs: Temperature 97.8, pulse 72, respiratory 16, BP 90/48 to 129/68, saturations 84% on 2 L. Will recheck as his previous saturation was 97% on 2 L. General: Patient is awake, alert, frail-appearing male who appears older than his age of 61. He is currently in no respiratory distress. His breathing is nonlabored. HEENT: Normocephalic, atraumatic. Neck: Supple. CV: Regular rate. Chest: Relatively clear, nonlabored. No wheezing, no crackles. Abdomen: Soft. Extremities: Moves all extremities. Neurologic: No changes. LABS: Urine culture with gram-negative rods. Hemoglobin and hematocrit 11 and 37. Sodium 149, potassium 5.6, chloride 120, BUN 52, creatinine 1.3. ASSESSMENT: 1. Acute on likely chronic renal failure. BUN and creatinine continue to improve currently down to 52 and 1.3 from 130 and 2.7. 2. Hyperkalemia. Continues to slightly improve down to 5.6. 3. Hypernatremia. 4. Metabolic acidosis. CO2 is still at 11 despite sodium bicarb drip and improving renal function. PLAN: Will continue patient in ICU. Currently his O2 saturation has recently dropped. Uncertain if this was a poor reading. We will continue Zosyn for his UTI until culture and sensitivity result. Continue sodium bicarb drip. Will continue to encourage p.o. Further orders as needed. cc: Jake Gruber MD
[2017-01-31] MEDS: NICODERM PATCH TD PRN (20:31)
[2017-02-01] MEDS: ZOSYN 3.375 GM/NS 3.375 GM/50 ML IVPB IV SCH ×2 (00:35→05:53)
[2017-02-01] MEDS: D5 1/2 NS 1,000 ML IV SCH (02:19)
[2017-02-01] MEDS: DUONEB (A & A) INH SCH ×6 (03:45→22:56)
[2017-02-01 06:58] LABS: HEMOGLOBIN 10.5 g/dL (14.0-18.0); MCH 27.6 PG (27-31); MCHC 30.9 g/dL (33-37); MCV 89.2 FL (81-99); MPV 11.3 FL (7.4-10.4); RBC 3.81 XMIL (4.7-6.1)
[2017-02-01 07:26] LABS: AGAP 12; ALKALINE PHOSPHATASE 63 U/L (32-122); BUN 24 mg/dL (8-22); CALCIUM 9.4 mg/dL (8.8-10.2); CHLORIDE 121 mmol/L (98-107); COSMO 300; GOT 25 U/L (10-34); GPT 23 U/L (10-44); MAGNESIUM 1.8 mg/dL (1.5-2.7); POTASSIUM 4.7 mmol/L (3.5-5.1); SODIUM 149 mmol/L (136-145); TCO2 16 mmol/L (25-35); TOTAL PROTEIN 7.5 g/dL (6.3-8.3)
[2017-02-01] MEDS: LACTULOSE PO SCH ×2 (08:39→21:48)
--- NOTE | 2017-02-01 08:46 | PROGRESS NOTE ---
DATE: 02/01/2017 SUBJECTIVE: Patient is awake, alert this morning. He is in no distress, sitting watching television. PHYSICAL: Vital Signs: Temperature 97, pulse 68, respiratory 14, BP 115/61 to 133/75, saturation 99% on 2 L. General: The patient does not even appear to be the same person as he was on admission. His family has arrived and has shaved him as well as given him a haircut. He is awake, alert. He is talking. His memory is intact which is a tremendous improvement as before he was confused, disoriented. Unable to carry on a conversation and very unkempt. HEENT: Normocephalic. Neck: Supple. CV: Regular rate. Chest: Completely clear. No wheezing. Nonlabored. No crackles. Abdomen: Soft. Extremities: Moves all extremities. Neurologic: No changes. LABS: Hemoglobin and hematocrit 10 and 30. Sodium 149, potassium 4.7, chloride 121, carbon dioxide 16, BUN 24, creatinine 1.0, albumin 3.0. ASSESSMENT: 1. Klebsiella urinary tract infection sensitive to cefazolin, Levaquin and mildly to Bactrim. Patient is on Zosyn. We will stop this and change to p.o. Levaquin as his renal function has improved. 2. Acute renal failure. Patient has had a tremendous improvement on his renal failure. His BUN on admission was 130, currently 24. Creatinine on admit was 2.7, currently 1.0. Therefore, we will stop his sodium bicarb drip. 3. Metabolic acidosis secondary to his urinary tract infection, as well as his acute renal failure, improving. Will stop his bicarb drip and recheck in the a.m. 4. Generalized weakness. Appears resolved. 5. History of diabetes, stable. PLAN: As noted, patient is tremendously improved from admission. He does not even appear to be the same individual with such a marked improvement. Will advance his diet. Move him to the floor. Hopefully home in the next 1-2 days. cc: Jake Gruber MD
[2017-02-01] MEDS: NORCO-7.5 PO PRN (09:03)
[2017-02-01] MEDS: LEVAQUIN PO SCH (09:04)
[2017-02-01] MEDS ORDERED: LIPITOR PO SCH (21:00)
[2017-02-01] MEDS: COLCRYS PO SCH (21:48)
[2017-02-01] MEDS: LOPRESSOR PO SCH (21:48)
[2017-02-02] MEDS: DUONEB (A & A) INH SCH ×2 (05:04→08:47)
--- NOTE | 2017-02-02 05:34 | EKG Report ---
Test Performed on : 01/29/2017 11:42:28 PM Test Reason : tachycardia Blood Pressure : / mmHG Vent. Rate : 062 BPM Atrial Rate : 062 BPM P-R Int : 116 ms QRS Dur : 108 ms QT Int : 368 ms P-R-T Axes : 081 078 079 degrees QTc Int : 373 ms Normal sinus rhythm. Minimal voltage criteria for LVH, may be normal variant Early repolarization Borderline ECG When compared with ECG of 29-JAN-2017 23:41, (Unconfirmed) ST elevation has replaced ST depression in Anterior leads Unconfirmed Result
[2017-02-02 06:10] LABS: HEMATOCRIT 33.7 % (42.0-52.0); HEMOGLOBIN 10.4 g/dL (14.0-18.0); MCH 27.4 PG (27-31); MCHC 30.9 g/dL (33-37); MCV 88.7 FL (81-99); MPV 11.1 FL (7.4-10.4); RBC 3.8 XMIL (4.7-6.1)
[2017-02-02 06:33] LABS: AGAP 10; ALKALINE PHOSPHATASE 66 U/L (32-122); BUN 22 mg/dL (8-22); CALCIUM 9.5 mg/dL (8.8-10.2); CHLORIDE 116 mmol/L (98-107); COSMO 289; GOT 32 U/L (10-34); GPT 30 U/L (10-44); POTASSIUM 5.1 mmol/L (3.5-5.1); SODIUM 143 mmol/L (136-145); TCO2 17 mmol/L (25-35); TOTAL PROTEIN 7.2 g/dL (6.3-8.3)
[2017-02-02] MEDS ORDERED: ANORO ELLIPTA 62.5-25 MCG INH INH SCH (07:30)
[2017-02-02] MEDS: COLCRYS PO SCH (08:51)
[2017-02-02] MEDS: LOPRESSOR PO SCH (08:51)
[2017-02-02] MEDS: LEVAQUIN PO SCH (08:51)
[2017-02-02] MEDS: LACTULOSE PO SCH (08:51)
[2017-02-02] MEDS ORDERED: PLAVIX PO SCH (09:00)
[2017-02-02] MEDS ORDERED: ASPIRIN PO SCH (09:00)
[2017-02-02] MEDS: NORCO-7.5 PO PRN (09:30)
--- NOTE | 2017-02-02 13:02 | Diag Imaging Result Document ---
PROCEDURE NAME: FOOT COMPLETE LEFT - 02/02/2017 LEFT FOOT 3 VIEWS: FINDINGS: No fracture. No dislocation. Minimal arthritic changes with mild joint space narrowing at the first metatarsophalangeal joint. No bone erosions. No periosteal reaction. IMPRESSION: Mild arthritis.
[2017-02-02 15:05] VITALS: BP 113/71
--- NOTE | 2017-02-04 02:23 | DISCHARGE SUMMARY ---
ADMISSION DATE: 01/29/2017 DISCHARGE DATE: 02/02/2017 DISCHARGE DIAGNOSES: 1. Acute renal failure, resolved. 2. Acute dehydration, resolved. 3. Hyperkalemia, resolved. 4. Urinary tract infection with Klebsiella, sensitive to Levaquin. 5. Metabolic acidosis, improved. 6. Leukocytosis, resolved. 7. Sepsis, secondary to Klebsiella urinary tract infection, with leukocytosis, metabolic encephalopathy, and acute renal failure. 8. Metabolic encephalopathy, resolved. 9. Generalized weakness, resolved. 10. Known history of diabetes. 11. Hypertension. CONSULTATIONS: None. PROCEDURES: None. BRIEF HOSPITAL COURSE: The patient is a 61-year-old male who was brought to the hospital by his family. They noted that he was more confused, disoriented. He was not walking. He was having more difficulty eating and drinking. States that he was sleeping most of the time. Upon initial workup in the ER, he was noted to have a BUN of 142, creatinine 2.7. No previous history of labs on his chart were noted. He was confused, disoriented, unable to answer questions. He did not know who he was or where he was. He was quite unkempt in appearance. He was admitted to the hospital, subsequently placed in the ICU, moved from observation secondary to his acute mental status change and delirium. He was placed on IV fluids. He had a slow improvement on his BUN, creatinine, and potassium. However, he was noted to have a mildly worsening metabolic acidosis. Therefore, he was started on a bicarb drip for 2 days. He had a tremendous improvement. His BUN continued to improve. His creatinine dropped down to 1.2. His family came in and cleaned him up, shaved him, cut his hair. Bicarbonate drip was stopped, as was his normal saline. He was able to sit up. He was awake and alert. He was completely oriented. He was eating without any difficulty, and was transferred to the floor. On discharge, patient is awake, alert, oriented. He is in no distress. Very pleasant to talk with. BUN is 27, creatinine 0.8. Potassium 5.1, carbon dioxide 17. Vital signs are stable. He is ambulating in the rosario without much difficulty. He is having some left foot pain. He had an x- ray on his left foot that was negative for any type of fracture. He does have a history of gout, although his uric acid level was low in the hospital. DISPOSITION: 40 minutes was spent in discharge planning and instructions. Discussed with patient that he needs to continue Levaquin for the next 5 days at home. He is follow up with his primary care physician and recheck his labs in a week or 2. Needs to continue to eat or drink and ambulate. No other medications were added. cc: Jake Gruber MD
== END 2017-02-02 16:05 | disposition home or self-care (01) ==
LOC: P.ED 10:48 → P.MEDSURG 14:25 → P.ICU 01-30 00:56 → P.MEDSURG 02-01 09:02
PROVIDERS: ATTEND Family Medicine

== ENCOUNTER 2017-03-17 11:18 | Inpatient (IN) ==
[2017-03-17] MEDS ORDERED: ZOFRAN IV PRN (12:29)
--- NOTE | 2017-03-17 12:46 | HISTORY AND PHYSICAL ---
CHIEF COMPLAINT: Left foot pain. HISTORY OF PRESENT ILLNESS: Mr. Guevara is a 61-year-old gentleman who presented to the office today with a complaint of having swelling and soreness of his left foot. He is really a poor historian and has not been able to give me a very good history. He has been admitted to the rehab recently but he does not really know about his recent illness. PAST MEDICAL HISTORY: 1. Coronary artery disease status post coronary artery bypass surgery with status post stent placement. 2. Chronic obstructive pulmonary disease. 3. Hypertension. 4. Dyslipidemia. 5. Impaired fasting glucose. 6. History of prostate cancer. That is followed by Dr. Combs. PAST SURGICAL HISTORY: 1. Quadruple coronary bypass surgery. 2. Prostatectomy. 3. Coronary angioplasty with stent placement. SOCIAL HISTORY: The patient has been smoking cigarettes in the past. He started smoking 1 pack of cigarettes per day in 1982, but quit smoking in November,. He denies using any recreational drugs and takes alcohol only occasionally. FAMILY HISTORY: There is family history of arthritis, hypertension, osteoporosis and diabetes. ALLERGIES: No known drug allergies reported. CURRENT HOME MEDICATIONS: 1. Amlodipine 5 mg orally once daily. 2. Anoro Ellipta 62.5 mcg/25 mcg per inhalation, 1 inhalation once daily. 3. Aspirin 81 mg orally once daily. 4. Atorvastatin 40 mg orally once daily at bedtime. 5. Colchicine 0.6 mg orally twice daily. 6. Hydrocodone/acetaminophen 7.5 mg/325 mg orally twice daily as needed for pain. 7. Ipratropium bromide and albuterol sulfate inhalation every 6 hours via nebulizer as needed for wheezing. 8. Lisinopril 40 mg orally once daily. 9. Metoprolol 50 mg orally twice daily. 10. Clopidogrel 75 mg orally once daily. REVIEW OF SYSTEMS: A full review of system could not be obtained since patient is a very poor historian. PHYSICAL EXAMINATION: VITAL SIGNS: Temperature 98.2 degrees, pulse 67 per minute, blood pressure 150/ 89, pulse ox 96% on room air. GENERAL: Patient is alert and oriented x3. He does not appear to be in any acute distress at this time. HEENT: Within normal limits. NECK: Supple without any thyromegaly. LYMPHATICS: No lymphadenopathy noted in the neck region. CHEST: Chest wall is nontender. CARDIOVASCULAR: First and second heart sounds are audible without any murmurs or gallops. RESPIRATORY: No respiratory distress noted. Bilateral lung air entry is good without any rales or rhonchi. GASTROINTESTINAL: Abdomen is soft and nontender on palpation. Normal bowel sounds are present. MUSCULOSKELETAL: Left foot is erythematous and significantly edematous. His left 1st toenail has been partially avulsed and the whole area is very tender on examination. PSYCHIATRIC: Normal affect noted. INTEGUMENTARY: Skin is warm and without any rash except for what is already noted in the musculoskeletal section. NEUROLOGIC: No focal deficits are present. GENITOURINARY: Deferred. IMPRESSION: 1. Cellulitis of left foot including his left 1st toe. 2. Acute gouty arthropathy. 3. Athlete's foot. 4. History of coronary artery disease, hypertension and dyslipidemia. PLAN: Patient will be admitted to the medical floor at [facility], and I am going to obtain a CBC, CMP, 2 sets of blood cultures, wound culture, and consultations with General Surgery, along with Infectious Disease. Would also obtain wound care consult and start him on Zosyn 3.375 g IV every 6 hours, along with morphine sulfate 4 mg IV q.4 hours as needed for pain. We will also give him Zofran 4 mg IV q.4 hours as needed for nausea and vomiting, and start him on clotrimazole 1% cream to be applied between the toes of left foot twice daily. We will continue with his routine home medications and follow clinical course at the hospital. cc: Shelli George MD MTDD
[2017-03-17] MEDS: MORPHINE IV PRN ×3 (13:42→23:07)
[2017-03-17] MEDS: NS 1,000 ML IV SCH (13:58)
[2017-03-17] MEDS: ZOSYN 3.375 GM/NS 3.375 GM/50 ML IVPB IV SCH ×2 (13:59→23:09)
[2017-03-17 14:09] LABS: BASO% 0.7 % (0.0-0.8); EOS# 0.18 X1000 (0.0-0.7); EOS% 2.5 % (0.0-10.0); HEMATOCRIT 33.2 % (42.0-52.0); HEMOGLOBIN 10.5 g/dL (14.0-18.0); LYMPH# 1.61 X1000 (1.2-3.4); LYMPH% 22.4 % (20.5-51.1); MANUAL DIFF NEEDED? YES; MCH 28.3 PG (27-31); MCHC 31.6 g/dL (33-37); MCV 89.5 FL (81-99); MONO# 0.54 X1000 (0.11-0.59); MONO% 7.5 % (1.7-9.3); NEUT% 66.9 % (42.2-75.2); PLT 241 X1000 (130-400); RBC 3.71 XMIL (4.7-6.1)
[2017-03-17 14:19] LABS: AGAP 8; ALBUMIN 3.1 g/dL (3.5-5.0); ALKALINE PHOSPHATASE 57 U/L (32-122); BUN 11 mg/dL (8-22); CALCIUM 8.6 mg/dL (8.8-10.2); CHLORIDE 103 mmol/L (98-107); COSMO 274; GOT 14 U/L (10-34); GPT 11 U/L (10-44); POTASSIUM 4.9 mmol/L (3.5-5.1); SODIUM 137 mmol/L (136-145); TCO2 26 mmol/L (25-35); TOTAL BILIRUBIN 0.19 mg/dL (0.20-1.00); TOTAL PROTEIN 6.3 g/dL (6.3-8.3)
[2017-03-17 14:28] LABS: EOS 6 % (1-10); LYMPHS 22 % (21-51); MONO 4 % (1-9)
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
--- NOTE | 2017-03-17 18:20 | Diag Imaging Result Doc PS360 ---
EXAM: FOOT COMPLETE LEFT HISTORY: ulceration between 3,4 toes TECHNIQUE: Three views COMMENT: There is soft tissue swelling particularly over the dorsal portion of the foot. There is no evidence of acute fracture or dislocation. Compared to 02/02/2017 other than the soft tissue swelling there has been no apparent change. IMPRESSION: No acute bony abnormality. Soft tissue swelling. Electronically signed by Jose Sanders 03/17/2017 6:17 PM
[2017-03-17] MEDS: LOTRIMIN 1% CREAM TOP SCH (23:10)
[2017-03-18] MEDS: ZOSYN 3.375 GM/NS 3.375 GM/50 ML IVPB IV SCH ×4 (01:00→18:22)
[2017-03-18] MEDS: MORPHINE IV PRN ×4 (03:14→18:22)
[2017-03-18] MEDS ORDERED: DUONEB (A & A) INH PRN (08:19)
[2017-03-18] MEDS ORDERED: ANORO ELLIPTA 62.5-25 MCG INH INH SCH (08:30)
[2017-03-18] MEDS: COLCRYS PO SCH ×2 (09:31→21:27)
[2017-03-18] MEDS: LOTRIMIN 1% CREAM TOP SCH ×2 (09:32→21:28)
[2017-03-18] MEDS: PRINIVIL PO SCH (09:32)
[2017-03-18] MEDS: PLAVIX PO SCH (09:32)
[2017-03-18] MEDS: LOPRESSOR PO SCH ×2 (09:32→21:27)
[2017-03-18] MEDS: ASPIRIN PO SCH (09:32)
[2017-03-18] MEDS: LOVENOX SUBQ SCH (09:32)
[2017-03-18] MEDS: NS 1,000 ML IV SCH ×2 (11:15)
[2017-03-18] MEDS: NORCO-7.5 PO PRN (14:06)
--- NOTE | 2017-03-18 14:39 | CONSULTATION ---
DATE OF CONSULTATION: 03/18/2017 CONCLUSION: Patient is admitted to the hospital with a left foot cellulitis. The patient also had tinea pedis. RECOMMENDATIONS: I agree with Dr. George placing the patient on Zosyn pending culture results. HISTORY OF PRESENT ILLNESS/DISCUSSION: The patient told me approximately a month ago he developed a progressive swelling of his left foot. It became painful and he said that it started draining purulent fluid. He has been admitted to the hospital by Dr. George. His laboratory studies thus far show a CBC with a white count of 7190, hemoglobin 10.5, and platelet count 241,000. The patient's creatinine is 0.8. The GFR is greater than 60. The patient's liver function studies are normal. The patient had an x-ray of his left foot and it showed no bone abnormalities, but there was soft tissue swelling which is compatible with cellulitis. PAST MEDICAL HISTORY/REVIEW OF SYSTEMS: Eyes and Ears: He denies difficulty hearing or seeing. Neck: No stiffness. Respiratory: He denies cough or shortness of breath. Cardiovascular: No chest pain or palpitations. Gastrointestinal: The patient has lost 30-40 pounds, and he states now he is beginning to eat more and he has gained some of the weight back. He initially just did not have an appetite and that is why he said he lost the weight. He is not vomiting and he is not having diarrhea. Genitourinary: No dysuria or flank pain. Endocrine: The patient does not have diabetes or thyroid disease. Hematologic: Patient denies having anemia or bleeding tendency. Bones, Joints, Muscles: See present illness. Neurologic: He is not having any passing out spells or seizures. Integument: He has not noticed any rashes. PREVIOUS HOSPITALIZATIONS AND OPERATIONS: He has had coronary artery bypass grafting, coronary artery angioplasty with stent placement, and he has had surgery for prostate cancer. MEDICAL DISEASES: Positive for hypertension, myocardial infarction, prostate cancer, COPD, hyperlipidemia, and impaired fasting glucose. INFECTIOUS DISEASE HISTORY: Negative for pneumonia and UTI. FAMILY HISTORY: Positive for hypertension and cancer. [place]IAL HISTORY[place] He [place]. He is from his . He is living with his mother. She has cats. He stopped drinking alcoholic beverages a year ago. He does smoke cigarettes. He denies abusing drugs. PHYSICAL EXAMINATION: Vital Signs: Temperature is 98.2 degrees, pulse 63, respirations 14, blood pressure 163/89. Patient's weight is listed as 136 pounds. General: This is an ill-appearing, middle-aged male. He is having pain in his left foot even when he is resting in bed. Head, Eyes, Ears, Nose, and Throat: He can hear my spoken words and see near objects. He has very poor oral hygiene and he is missing many of his teeth. Neck: No meningismus. Thorax: Increased AP diameter of the chest. Lungs: Clear to auscultation. Cardiovascular: Heart rate is regular. Peripheral pulses are diminished. Abdomen: Soft, slightly protuberant, but not tender. Extremities: The patient's left foot is swollen. It has a foul odor to it and it is tender especially where the great toe is. He has cream between his toes. I think this is an antifungal cream because the patient had tinea pedis. Neurologic: Patient is awake. He can move his extremities. There is no tremor. His sensation is intact to touch. His memory regarding his medical history is diminished. Thank you for the consult. cc: MD Shelli Carvajal MD
[2017-03-18] MEDS: LIPITOR PO SCH (21:27)
[2017-03-19] MEDS: ZOSYN 3.375 GM/NS 3.375 GM/50 ML IVPB IV SCH ×5 (01:59→20:35)
[2017-03-19] MEDS: MORPHINE IV PRN ×4 (02:00→20:34)
[2017-03-19] MEDS: NS 1,000 ML IV SCH ×4 (02:00→19:56)
[2017-03-19] MEDS: NORCO-7.5 PO PRN ×3 (07:22→21:25)
[2017-03-19] MEDS: LOPRESSOR PO SCH ×2 (10:20→20:35)
[2017-03-19] MEDS: LOVENOX SUBQ SCH (10:20)
[2017-03-19] MEDS: LOTRIMIN 1% CREAM TOP SCH ×2 (10:21→20:30)
[2017-03-19] MEDS: PRINIVIL PO SCH (10:21)
[2017-03-19] MEDS: ASPIRIN PO SCH (10:21)
[2017-03-19] MEDS: PLAVIX PO SCH (10:21)
[2017-03-19] MEDS: COLCRYS PO SCH ×2 (10:21→20:35)
--- NOTE | 2017-03-19 10:46 | Diag Imaging Result Doc PS360 ---
EXAM: ANGIOGRAM/AORTA W/RUNOFF HISTORY: PVD with rest pain, left foot infection TECHNIQUE: MIP images obtained COMPARISON: None. FINDINGS: The gallbladder is contracted. Spleen is not enlarged. A 6 cm cyst arises from the upper pole of the right kidney. There is a tiny left renal cyst. Neither adrenal gland is enlarged. Prominent stool throughout the colon. The urinary bladder is not distended. I believe the prostate has been removed. No aneurysmal dilatation to the abdominal aorta. Normal takeoff of the celiac artery and superior mesenteric artery. Normal takeoff of the left renal artery. There is a small amount of plaque at the takeoff of the right renal artery with stenosis of less than 40%. Right: Mild narrowing of the proximal common iliac artery of less than 40%. Normal external iliac artery. Mild plaque in the common femoral artery. Noncalcified plaque in the proximal superficial femoral artery with a stenosis of 40%. There are several mild stenoses in the superficial femoral artery and addition to a stenosis of at least 70% distally in the proximal abductor canal. Severe stenosis in the mid popliteal artery approaching 90%. There is a three vessel trifurcation with prominent plaque in anterior posterior tibial arteries. These arteries are very small. Posterior tibial artery does continue to the ankle although I believe there is occlusion to the anterior tibial artery. Left: Mild stenosis in the common iliac artery of less than 40%. Normal external iliac artery. Mild plaque in the common femoral artery. Severe stenosis in the proximal superficial femoral artery of at least 70%. There is an additional stenosis of at least 50% proximally. Severe stenosis distally approaching 90%. Stenosis of between 70 and 90% in the abductor canal. Severe stenosis in the proximal popliteal artery approaching 90%. There is complete occlusion distally. Tiny anterior posterior tibial arteries. Each of these are occluded proximally. There is reconstitution in the mid posterior tibial artery which continues to the ankle. IMPRESSION: 1.Significant stenoses in each superficial femoral artery 2.Occlusion in the left popliteal artery with a severe stenosis in the right popliteal artery 3.Small anterior and posterior tibial arteries bilaterally with occlusions and reconstitution as described Electronically signed by Omari Guerrero 03/19/2017 10:44 AM
[2017-03-19] MEDS: LIPITOR PO SCH (20:35)
[2017-03-20] MEDS: MORPHINE IV PRN ×6 (00:32→22:55)
[2017-03-20] MEDS: ZOSYN 3.375 GM/NS 3.375 GM/50 ML IVPB IV SCH ×5 (00:33→20:51)
[2017-03-20] MEDS: PERCOCET-10 PO PRN ×6 (01:05→23:13)
[2017-03-20] MEDS: NS 1,000 ML IV SCH ×4 (01:28→20:50)
[2017-03-20 06:53] LABS: MANUAL DIFF NEEDED? NO
[2017-03-20 06:55] LABS: BASO% 0.6 % (0.0-0.8); EOS# 0.23 X1000 (0.0-0.7); EOS% 3.7 % (0.0-10.0); HEMOGLOBIN 10.4 g/dL (14.0-18.0); IMM GRAN# 0.02 X1000 (0.0-0.04); IMM GRAN% 0.3 % (0.0-0.5); LYMPH# 1.75 X1000 (1.2-3.4); MCH 28.1 PG (27-31); MCHC 31.5 g/dL (33-37); MCV 89.2 FL (81-99); MONO% 9.6 % (1.7-9.3); MPV 9.4 FL (7.4-10.4); NEUT% 57.8 % (42.2-75.2); PLT 239 X1000 (130-400)
--- NOTE | 2017-03-20 07:08 | PROGRESS NOTE ---
DATE: 03/20/2017 SUBJECTIVE: Patient says he is doing better. No major issues. OBJECTIVE: Vital Signs: Patient is currently afebrile. His vital signs are stable. General: No acute distress. Cardiovascular: Regular rate and rhythm. Lungs: Grossly clear. Abdomen: Soft, nontender, nondistended. Extremities: By report, the left foot appears to be improving. No streaking erythema noted. DIAGNOSTIC DATA: CTA reviewed and noted to have left popliteal artery occlusion and significant stenosis on the right popliteal artery with anterior and posterior arteries reconstituting distally bilaterally. ASSESSMENT AND PLAN: A 61-year-old male with peripheral vascular disease and left leg wound. Peripheral vascular disease: At this time, given his occlusions, he will likely need vascular intervention. Dr. Parham is out of town for the next week. I do not think this needs to be done emergently. He can follow up with Dr. Parham and have potential for bypass versus arthrectomy discussed. cc: MD Shelli Salgado MD
[2017-03-20 07:10] LABS: AGAP 9; BUN 17 mg/dL (8-22); CALCIUM 8.3 mg/dL (8.8-10.2); CHLORIDE 108 mmol/L (98-107); COSMO 286; POTASSIUM 4.5 mmol/L (3.5-5.1); SODIUM 143 mmol/L (136-145); TCO2 26 mmol/L (25-35)
[2017-03-20] MEDS: LOVENOX SUBQ SCH (08:45)
[2017-03-20] MEDS: PRINIVIL PO SCH (08:46)
[2017-03-20] MEDS: COLCRYS PO SCH ×2 (08:46→20:53)
[2017-03-20] MEDS: PLAVIX PO SCH (08:46)
[2017-03-20] MEDS: ASPIRIN PO SCH (08:46)
[2017-03-20] MEDS: LOTRIMIN 1% CREAM TOP SCH ×2 (08:47→20:53)
[2017-03-20] MEDS: LOPRESSOR PO SCH ×2 (09:25→20:53)
--- NOTE | 2017-03-20 13:36 | VASCULAR LAB ---
PROCEDURE NAME: Arterial Bilateral Legs - 03/18/2017 PROCEDURE: Bilateral lower extremity segmental Doppler exam. REQUESTING PHYSICIAN: Myles Parham MD. INTERPRETING PHYSICIAN: Olegario Almazan MD. SET OFF PRESS OPERATOR: Tiago. INDICATION: Ulcers in the left foot. PRESSURES: Right brachial--there is an IV in the left--is 171. High thigh on the right is greater than 250, on the left is 205. Low thigh on the right is 203, on the left greater than 230. Calf on the right is 176, on the left 152. DP on the right is 171, on the left 82. PT on the right is 186, on the left 91. Toe pressure on the right is 119, on the left is undetectable. DORA on the right is 1.09, on the left is 0.53. TBI on the right is 0.70, on the left is undetectable. Waveforms on the right are normal to the level of the calf. There is some blunting of the waveforms noted at the level of the ankle and the toe, however. On the left, the waveforms are normal throughout the thigh, become more blunted at the level of the calf with significant blunting at the level of the ankle and are flat with no pulsatile flow noted at the toe. SUMMARY: Significant diminishment of the DORA and pressures at the level of the ankle on the left lower extremity suggesting likely tibial disease, possibly some popliteal component, as well. Overall, maintained pressures at the level of the ankle and foot on the right with possibly some mild blunting of the waveforms distally. Would recommend correlation with angiography. cc: MD Myles Guajardo MD
--- NOTE | 2017-03-20 15:00 | PROGRESS NOTE ---
DATE: 03/20/2017 PRESENT ILLNESS: The patient has left foot cellulitis and tinea pedis which may have been the portal of entry for the patient's foot to become infected. Unfortunately the patient also has severe peripheral vascular disease which certainly limits the amount of antibiotic that can be delivered to his infected foot. MEDICATIONS: Patient currently is receiving Zosyn. PHYSICAL EXAMINATION: Vital Signs: Temperature is 98.2 degrees, pulse 52, respiration is 20, blood pressure 155/76. Generally: This is an ill-appearing middle-aged male who seems to be having a lot of pain in his left foot, probably because of a combination of infection and also peripheral vascular disease. Lungs: Clear to auscultation. Cardiovascular: Regular heart rate. Abdomen: Soft and nontender. Extremities: There is no edema. There are diminished peripheral pulses. The left foot remains swollen and the left great toe has some erythematous tissue with a seropurulent drainage. LAB AND X-RAY: The patient's CBC today shows a white count of 6250, hemoglobin 10.4, and platelet count 239,000. Creatinine 0.9. GFR is greater than 60. The left foot Gram stain shows gram- positive cocci and gram-negative rods. The culture is pending. Creatinine is 0.9. GFR is greater than 60. Blood cultures are negative. ASSESSMENT AND PLAN: Patient has left foot cellulitis unfortunately complicated by severe peripheral vascular disease. COMORBIDITIES: The patient's comorbidities include peripheral vascular disease, hyperlipidemia, impaired fasting glucose, COPD, and cigarette smoking. cc: MD Shelli Carvajal MD
[2017-03-20] MEDS: LIPITOR PO SCH (20:53)
[2017-03-21] MEDS: ZOSYN 3.375 GM/NS 3.375 GM/50 ML IVPB IV SCH ×3 (01:50→15:03)
[2017-03-21] MEDS: MORPHINE IV PRN ×5 (03:00→20:07)
[2017-03-21] MEDS: PERCOCET-10 PO PRN ×5 (03:09→22:26)
[2017-03-21] MEDS: NS 1,000 ML IV SCH ×3 (03:09→17:51)
[2017-03-21] MEDS: ASPIRIN PO SCH (08:06)
[2017-03-21] MEDS: COLCRYS PO SCH ×2 (08:06→20:07)
[2017-03-21] MEDS: LOPRESSOR PO SCH ×2 (08:06→20:07)
[2017-03-21] MEDS: PRINIVIL PO SCH (08:06)
[2017-03-21] MEDS: LOVENOX SUBQ SCH (08:07)
[2017-03-21] MEDS: PLAVIX PO SCH (08:07)
[2017-03-21] MEDS: LOTRIMIN 1% CREAM TOP SCH ×2 (08:07→20:06)
[2017-03-21] MEDS ORDERED: VANCOMYCIN IV PER PHARMACY MISC SCH (15:45)
[2017-03-21] MEDS ORDERED: ROCEPHIN 1 GM/NS 1 GM/50 ML IVPB IV SCH (16:15)
[2017-03-21] MEDS: VANCOMYCIN 1,700 MG in NS 250 ML IV SCH (16:21)
[2017-03-21] MEDS ORDERED: MAXIPIME 1 GM/NS 1 GM/50 ML IVPB IV SCH (17:00)
--- NOTE | 2017-03-21 17:13 | PROGRESS NOTE ---
DATE: 03/21/2017 PRESENT ILLNESS: The patient has cellulitis of the left foot along with tinea pedis which may be the portal for which the fungus invades into the skin. The patient has peripheral vascular disease which will limit the amount of antibiotic that is able to be delivered to the foot. MEDICATIONS: The patient is on Zosyn currently. PHYSICAL EXAMINATION: Vital Signs: Temperature is 97.9 degrees, pulse 47, respirations 16, blood pressure 136/69. Generally: This is a somewhat ill-appearing middle- aged male who is in no acute distress. Lungs: Clear to auscultation. Cardiovascular: Regular heart rate. Extremities: There were diminished peripheral pulses in the left foot and the left foot remains swollen, the left great toe also has swelling and some erythematous lesions with seropurulent drainage. LAB AND X-RAY: CBC for today shows a white count of 6250, hemoglobin 10.4 and platelet count 239,000. Creatinine 0.9, GFR is greater than 60. There is not any radiographic study done today. ASSESSMENT AND PLAN: Patient has cellulitis of the left foot. There may be an underlying osteomyelitis, I have changed the patient's antibiotics to cefepime and vancomycin. I ordered a bone scan and placement of a PICC. I consulted [facility] to supply the patient' IV antibiotics. COMORBIDITIES: Includes peripheral vascular disease, hyperlipidemia, impaired fasting glucose, COPD and cigarette smoking. cc: MD Shelli Carvajal MD MTDD
[2017-03-21] MEDS: LIPITOR PO SCH (20:07)
[2017-03-22] MEDS: MORPHINE IV PRN ×6 (00:13→22:29)
[2017-03-22] MEDS: PERCOCET-10 PO PRN ×5 (02:34→20:37)
[2017-03-22] MEDS: NS 1,000 ML IV SCH ×2 (04:30→14:37)
[2017-03-22 06:02] LABS: BASO% 0.6 % (0.0-0.8); EOS% 4.8 % (0.0-10.0); HEMATOCRIT 33.3 % (42.0-52.0); HEMOGLOBIN 10.6 g/dL (14.0-18.0); LYMPH# 1.82 X1000 (1.2-3.4); LYMPH% 29.4 % (20.5-51.1); MANUAL DIFF NEEDED? NO; MCH 28.7 PG (27-31); MCHC 31.8 g/dL (33-37); MCV 90.2 FL (81-99); MONO# 0.75 X1000 (0.11-0.59); MONO% 12.1 % (1.7-9.3); MPV 9.4 FL (7.4-10.4); NEUT% 53.1 % (42.2-75.2); PLT 253 X1000 (130-400); RBC 3.69 XMIL (4.7-6.1)
[2017-03-22 06:11] LABS: INR 0.96; PROTIME 10.1 Seconds (9.2-11.7)
[2017-03-22] MEDS ORDERED: NS 250 ML ONE (08:32)
[2017-03-22] MEDS: PRINIVIL PO SCH (10:16)
[2017-03-22] MEDS: LOVENOX SUBQ SCH (10:16)
[2017-03-22] MEDS: LOPRESSOR PO SCH ×2 (10:16→20:36)
[2017-03-22] MEDS: COLCRYS PO SCH ×2 (10:16→20:36)
[2017-03-22] MEDS: ASPIRIN PO SCH (10:16)
[2017-03-22] MEDS: LOTRIMIN 1% CREAM TOP SCH ×2 (10:16→20:39)
[2017-03-22] MEDS: PLAVIX PO SCH (10:28)
--- NOTE | 2017-03-22 13:04 | Diag Imaging Result Doc PS360 ---
EXAM: 3 PHASE BONE SCAN HISTORY: L foot osteomyelitis TECHNIQUE: 30.1 mCi of technetium 99m MDP was injected intravenously and three phase scanning of the feet and ankles is performed in the anterior and posterior projection. Static scanning in multiple projections is present. COMMENT: There is increased flow to the left foot compared to the right. There is also increased blood pool activity throughout the left foot. This is most notable in the area of the first metatarsophalangeal joint and the interphalangeal joint of the great toe. There is some increased bone activity around the ankle generally as well. IMPRESSION: Generally increased of flow and blood pool activity in the left foot which would be consistent with inflammation and cellulitis. The lack of focal bone activity in the area of the ulcer between the second third toes would argue against osteomyelitis in this area. Electronically signed by Jose Sanders 03/22/2017 1:02 PM
[2017-03-22] MEDS: VANCOMYCIN 1,700 MG in NS 250 ML IV SCH (15:51)
[2017-03-22] MEDS: LEVAQUIN PO SCH (15:53)
--- NOTE | 2017-03-22 16:06 | PROGRESS NOTE ---
DATE: 03/22/2017 PRESENT ILLNESS: The patient has cellulitis of the left foot along with tinea pedis. Based on the bone scan result, the patient does not have osteomyelitis. MEDICATIONS: The patient currently is receiving vancomycin and Rocephin. PHYSICAL EXAMINATION: Vital Signs: Temperature 98.3, pulse 52, respirations 17, blood pressure 166/62. General: This is an ill-appearing middle-aged male who is in no acute distress. Lungs: Clear to auscultation. Cardiovascular: Regular heart rate. Abdomen: Soft and nontender. Extremities: The patient's left foot is less swollen and there is no drainage coming from the great toe. Patient has a PICC present in the right arm. The PICC site is not swollen or hemorrhagic. DIAGNOSTICS: The patient's CBC for today shows a white count of 6190, hemoglobin 10.6, and platelet count 253,000. Creatinine 0.8. As mentioned above, the bone scan does not show evidence of osteomyelitis. ASSESSMENT AND PLAN: 1. The patient has infection of his foot associated with peripheral vascular disease. I am switching the patient from Rocephin to Levaquin p.o. 2. Comorbidities include peripheral vascular disease, hyperlipidemia, impaired fasting glucose, chronic obstructive pulmonary disease and cigarette smoking. cc: MD Shelli Carvajal MD
[2017-03-22] MEDS: LIPITOR PO SCH (20:36)
[2017-03-23] MEDS: PERCOCET-10 PO PRN ×7 (00:30→23:14)
[2017-03-23] MEDS: MORPHINE IV PRN ×4 (02:30→21:51)
[2017-03-23] MEDS: NS 1,000 ML IV SCH ×3 (04:07→21:50)
[2017-03-23] MEDS: PRINIVIL PO SCH (08:37)
[2017-03-23] MEDS: PLAVIX PO SCH (08:37)
[2017-03-23] MEDS: ASPIRIN PO SCH (08:37)
[2017-03-23] MEDS: LOPRESSOR PO SCH ×2 (08:37→22:19)
[2017-03-23] MEDS: LEVAQUIN PO SCH (08:37)
[2017-03-23] MEDS: LOTRIMIN 1% CREAM TOP SCH ×2 (08:37→22:19)
[2017-03-23] MEDS: COLCRYS PO SCH ×2 (08:37→21:51)
[2017-03-23] MEDS: LOVENOX SUBQ SCH (08:39)
--- NOTE | 2017-03-23 12:20 | DISCHARGE SUMMARY ---
ADMISSION DATE: 03/17/2017 DISCHARGE DATE: 03/23/2017 DISCHARGE DIAGNOSES: 1. Severe peripheral vascular disease with left foot cellulitis and osteomyelitis of the second and third digits. 2. History of coronary artery disease. 3. Hypertension. 4. Dyslipidemia. HOSPITAL COURSE: Mr. Guevara is a 61-year-old, gentleman, who presented to the office with 1 month history of swelling and progressively worsening soreness of his left foot. He was found to have cellulitis of his left foot with first toe having purulent drainage. He was admitted to the hospital for further evaluation and care. He was initially started on Zosyn intravenously that was changed later on to vancomycin and levofloxacin. Infectious disease consultation was obtained with Dr. Landry Avilez, who was actively involved in the care of this patient during this hospital admission, and who has recommended IV vancomycin as outpatient since patient has osteomyelitis. He will also take oral levofloxacin. Furthermore, we obtained in vascular surgery consultation with Dr. Parham, who has diagnosed him as having severe peripheral vascular disease that needs active intervention. Unfortunately Dr. Parham went out of town this week, and therefore we are going to plan for him to have follow up with Dr. Parham on Wednesday next week and possibly having surgery done at that time. He does not need any emergent intervention at this point, however. Since patient's condition has been relatively stable and his infection in his left foot has improved, we are going to discharge him today. He is going to be actually transferred to rehab. DISCHARGE MEDICATIONS: 1. Vancomycin 1500 mg IV q. 24 hours for 2 weeks to be adjusted as per pharmacy protocol and by Dr. Landry Avilez. 2. Levofloxacin 500 mg orally once daily for 2 weeks. 3. Percocet 10 mg q. 4 hours as needed for pain. 4. Clopidogrel 75 mg orally once daily. 5. Aspirin 81 mg orally once daily. 6. Clotrimazole 1% cream to be applied to the left foot affected skin area twice daily as directed. 7. Atorvastatin 40 mg orally once daily at bedtime. 8. Colchicine 0.6 mg orally twice daily. 9. Lisinopril 40 mg orally once daily. 10. Metoprolol 50 mg orally twice daily. 11. Albuterol and Atrovent nebulization treatments q. 6 hours as needed for wheezing. 12. Anoro Ellipta 1 inhalation once daily. FOLLOWUP: He will follow with Dr. Parham in 6 days on Wednesday. That will be on the march this month for follow up. He will also follow up with me at the office on the march in 1 week. I have also advised him to follow up with Dr. Landry Avilez in approximately 10 days. CONDITION: Stable. DISPOSITION[facility] TIME SPENT: A total of more than minutes were spent during the discharge process. cc: Shelli George MD MTDUri
--- NOTE | 2017-03-23 14:33 | PROGRESS NOTE ---
DATE: 03/23/2017 PRESENT ILLNESS: The patient has infection of his left foot. Methicillin-resistant Staph aureus and Serratia have been recovered from a culture of the foot. The patient's bone scan indicated that the patient does not have osteomyelitis. MEDICATIONS: The patient is receiving a combination of IV vancomycin and p.o. Levaquin. PHYSICAL EXAMINATION: Vital Signs: Temperature is 98.2 degrees, pulse 58, respirations 20, blood pressure 152/86. Generally: This is an ill-appearing, middle-aged male. He is in no acute distress. He continues to have pain, however, in his left foot. Lungs: Clear to auscultation. Cardiovascular: Regular heart rate. Abdomen: Soft and nontender. Extremities: The patient's left foot today is swollen. The left great toe is tender. It also has some ulcerated area, but there is no drainage. The patient has a PICC in his right arm. The PICC site is not swollen or tender. LABORATORY AND X-RAY: The patient's CBC today shows a white count of 6190, hemoglobin 10.6, and platelet count 253,000. Creatinine is 0.8. GFR is greater than 60. ASSESSMENT AND PLAN: 1. The patient has a severe foot infection which is complicated by peripheral vascular disease. My plan is to continue vancomycin IV and Levaquin p.o. The patient will be going to a rehab facility and then will have follow up with Dr. Parham who will be performing surgery to improve the vascular supply. I have requested that the patient see me in the office in 2 weeks if he is not placed in the hospital before that for his surgery. 2. Comorbidities include peripheral vascular disease, hyperlipidemia, impaired fasting glucose, chronic obstructive pulmonary disease, and cigarette smoking. cc: MD Shelli Carvajal MD
--- NOTE | 2017-03-23 16:23 | PROGRESS NOTE ---
DATE: 03/23/2017 ADDENDUM: The patient will be going to a rehab facility. I have written the following orders for the patient. Vancomycin 1500 mg IV every 24 hours, Levaquin 500 mg p.o. every 24 hours. The CBC, creatinine, vancomycin trough level should be drawn every Wednesday and a creatinine every . All the antibiotics and the lab orders are for a period of 2 weeks. I will be seeing the patient back in the office at that time if not before for the patient to be coming in to have peripheral vascular surgery performed by Dr. Parham. cc: MD Shelli Carvajal MD
[2017-03-23] MEDS: VANCOMYCIN 1,700 MG in NS 250 ML IV SCH (16:47)
[2017-03-23] MEDS: LIPITOR PO SCH (21:51)
[2017-03-24] MEDS: MORPHINE IV PRN ×2 (02:12→08:09)
[2017-03-24] MEDS: PERCOCET-10 PO PRN ×2 (06:34→11:17)
[2017-03-24] MEDS: NS 1,000 ML IV SCH ×2 (07:24→07:59)
[2017-03-24] MEDS: LEVAQUIN PO SCH (08:00)
[2017-03-24] MEDS: COLCRYS PO SCH (08:00)
[2017-03-24] MEDS: ASPIRIN PO SCH (08:00)
[2017-03-24] MEDS: PRINIVIL PO SCH (08:00)
[2017-03-24] MEDS: LOPRESSOR PO SCH (08:00)
[2017-03-24] MEDS: PLAVIX PO SCH (08:00)
[2017-03-24] MEDS: LOVENOX SUBQ SCH (08:01)
[2017-03-24 08:18] VITALS: BP 176/67
[2017-03-24] MEDS: LOTRIMIN 1% CREAM TOP SCH (09:57)
== END 2017-03-24 12:18 ==
LOC: DIRADM 11:18 → 3N 11:42
PROVIDERS: ADMIT Internal Medicine; ATTEND Internal Medicine